=== PATIENT | male | born 1940 | race Native Hawaiian/Other Pacific Islander ===

== ENCOUNTER 2018-06-11 00:26 | Emergency (ER) | payer OTHER ==
[~2018-06-11] VITALS: Wt 48.1 kg
[2018-06-11 01:06] LABS: PLATELET COUNT 293 K/uL (142-355)
[2018-06-11 01:21] VITALS: BP 114/60; TEMP 97.9
[2018-06-11] MEDS ORDERED: PRAVACHOL20 MG PO (03:43)
[2018-06-11] MEDS ORDERED: METO-837 PO (03:44)
[2018-06-11] MEDS ORDERED: TYLENOL325 MG PO (03:45)
[2018-06-11] MEDS ORDERED: DICL1GEL2 TOP (03:45)
[2018-06-11] MEDS ORDERED: CVS SENNA8.6 MG PO (03:45)
[2018-06-11] MEDS ORDERED: SOOTHE XP OPTH (03:47)
[2018-06-11] MEDS ORDERED: [UNRECOGNIZED DRUG - OTHER] OPTH (03:47)
== END 2018-06-11 01:21 | disposition other institution (70) ==
LOC: ED 00:26
PROVIDERS: Emergency Medicine
DX: R46.89 Other symptoms and signs involving appearance and behavior (principal); F03.90 Unspecified dementia, unspecified severity, without behavioral disturbance, psychotic disturbance, mood disturbance, and anxiety; R00.1 Bradycardia, unspecified; Z04.6 Encounter for general psychiatric examination, requested by authority
CPT/HCPCS: 36415; 80053; 81000; 85027; 93005; 99285

== ENCOUNTER 2018-06-28 10:30 | Inpatient (IN) | payer OTHER ==
[2018-06-28] VITALS (13 sets, daily range): BP systolic 84–124; BP diastolic 45–64; TEMP 97.6–99.2; Ht 160 cm; Wt 53.2 kg
[~2018-06-28] VITALS: Ht 160 cm; Wt 53.2 kg
[~2018-06-28 10:30] MED LIST: ARIPIPRAZOLE10 MG PO; CVS SENNA8.6 MG PO; DICL1GEL2 TOP; DIVA125C PO; DONE5TAB PO; ESCI10TA PO; FOLI1TAB26 PO; MEGE40TA32 PO; MEMA5TAB PO; METO-837 PO; PRAVACHOL20 MG PO; SOOTHE XP OPTH; TYLENOL325 MG PO; VITAMIN D50000 UNIT PO; [UNRECOGNIZED DRUG - OTHER] OPTH
[2018-06-29] VITALS (24 sets, daily range): BP systolic 92–120; BP diastolic 45–84; TEMP 98.2–100.1
[2018-06-29 06:17] LABS: PLATELET COUNT 209 K/uL (142-355)
[2018-06-29 06:41] LABS: POTASSIUM 4.1 mmol/L (3.6-5.2)
[2018-06-30] VITALS (24 sets, daily range): BP systolic 93–191; BP diastolic 46–94; TEMP 98.2–99.9
[2018-06-30 04:38] LABS: PLATELET COUNT 198 K/uL (142-355)
[2018-07-01] VITALS (21 sets, daily range): BP systolic 83–150; BP diastolic 49–89; TEMP 97.6–99.1
== END 2018-07-01 20:20 | disposition other institution (70) | DRG 190 ==
LOC: ICU 10:30
PROVIDERS: Internal Medicine; ADMIT Psychiatry & Neurology Psychiatry
DX: J44.0 Chronic obstructive pulmonary disease with (acute) lower respiratory infection (principal); J18.0 Bronchopneumonia, unspecified organism; J16.8 Pneumonia due to other specified infectious organisms; E87.2 Acidosis; E86.0 Dehydration; R06.03 Acute respiratory distress; I25.10 Atherosclerotic heart disease of native coronary artery without angina pectoris; I10 Essential (primary) hypertension; I95.89 Other hypotension
CPT/HCPCS: 36415; 36600; 80048; 81000; 82805; 83605; 85027; 87040; 94640; 94664; 94760; J1650; J1956